=== PATIENT | male | born 1990 | race Caucasian/White ===

== ENCOUNTER 2024-06-19 03:08 | Emergency (ER) | payer OTHER, SELFPAY ==
[2024-06-19 03:10] VITALS: BP 138/98
[2024-06-19 03:28] LABS: Glucose - Point of Care 390 mg/dl (70-99)
[2024-06-19 03:31] VITALS: BMI 24.0
[2024-06-19 03:35] VITALS: BP 127/89
[2024-06-19 04:00] VITALS: BP 122/92
--- NOTE | 2024-06-19 04:42 | ED.GENMED ---
History of Present Illness
General
Chief Complaint: Prescription Refill
Source: patient
Exam Limitations: none
Time Seen by Provider: 06/19/24 04:31
Nursing documentation reviewed up to this point in time: agreed with
History of Present Illness
History of Present Illness:
This is a 34-year-old gentleman with longstanding history of insulin-dependent diabetes. Previous hospitalization January 2023 for acute DKA. He does admit that his blood sugars generally run mildly high but overall has been stable with no recurrent
episodes of DKA.
He has been compliant with twice daily Levemir 20 mg but realized this evening that he ran out of his Levemir and attempted to call his physician, left a message but thus far has not received a return phone call.
He presents requesting prescription refill for his Levemir as well as requesting his evening dose of Levemir which he inadvertently missed tonight.
Overall feeling well, denies increased thirst nor increased urination, denies dizziness nor lightheadedness, no chest pain or cough or shortness of breath, no fever nor chills.
He denies needing any other prescription refills other than the Levemir.
Past History
Past History
ED Past Medical History: GERD, HTN, Hypercholesterolemia, IDDM, Psychiatric (Anxiety, Depression) and Other (Ulcers, Pelvic fractures)
ED Past Surgical History: None
Social History
Tobacco: Smoker
Alcohol: None
Drug: Marijuana
Personal: Single
Living: with family (Girlfriends family)
Employment: Not employed
Family History
Family History: Other (Noncontributory)
Phy Exam
Physical Exam
Physical Exam:
GENERAL: 34-year-old gentleman appears his stated age, awake and alert, pleasant, appears in no acute distress.
EYE: pupils equal and reactive. anicteric
NECK: Supple, nontender, no meningismus, no significant adenopathy.
ENT: oral mucosa is moist. No rhinorrhea.
CARDIAC: Regular rate and rhythm. no murmur.
LUNGS: Clear breath sounds bilaterally, no acute respiratory distress, no wheezes/rales/rhonchi
ABDOMEN: Soft, nondistended, without focal tenderness
NEUROLOGICAL: Alert and oriented x3, no focal neuro deficits. Gait is wilhelm and steady.
SKIN: Warm and dry, moderately pale in color, skin intact. No rash.
MUSCULOSKELETAL: No C/C/E. peripheral pulses are full and equal b/l. No palpable tenderness.
PSYCH: Normal and appropriate interaction.
Course
Orders/Labs/Results
Orders:
Orders
06/19/24 04:39
Insulin Glargine Lantus [Lantus] 20 units Subcutaneous Insulin Syringe [Syringe-Insulin] 0 unit SC NOW
Abnormal Lab Results
06/19/24
03:26
POC Glucose 390 H mg/dl
(70-99)
Vital Signs
Initial and Last Documented VS:
Initial Vital Signs
Temp Pulse Resp BP Pulse Ox
97.3 F 114 16 138/98 100
06/19/24 03:10 06/19/24 03:10 06/19/24 03:10 06/19/24 03:10 06/19/24 03:10
Last Documented Vital Signs
Temp Pulse Resp BP Pulse Ox
97.3 F 94 16 127/89 98
06/19/24 03:10 06/19/24 03:35 06/19/24 03:10 06/19/24 03:35 06/19/24 03:35
MDM/Problems Addressed
Differential Diagnosis Includes:
Patient with longstanding history of insulin-dependent diabetes has inadvertently run out of his long-acting/Levemir insulin which she is maintained on 20 units twice daily.
Accu-Chek elevated at 390.
Nothing in history nor exam to suggest DKA the patient states his blood sugars generally run somewhat elevated.
Will give his usual 20 units of long-acting insulin now. We have Lantus on hand and will refill prescription for Levemir FlexPen 20 units twice daily.
He denies needing any other medication refills.
Recommend prompt follow-up with PCP for recheck.
Chronic conditions affecting care: DM
*Pulse Oximetry
Patient hypoxic: no
*Critical Care Note
Total Time (30-74mins, 75-104mins- exclusive of procedures): Not Applicable
ED Attending Note
-
Portions of this chart may have been created with voice recognition software.� Occasional wrong word or��sound alike� substitutions may have occurred due to the inherent limitations of voice recognition software.
Discharge Plan
Departure
Patient Disposition: Home (Routine Discharge)
Date of Disposition: 06/19/24
Time of Disposition: 04:42
Patient with high blood pressure during this ER visit?: No
Condition: Good
Discharge Problem:
Visit for insulin refill, Diabetes type I
Instructions: Type 1 diabetes
Prescriptions:
New
insulin detemir U-100 100 unit/mL (3 mL) insulin pen
20 unit SC BID Qty: 15 3RF
No Action
lisinopril 20 MG tablet
20 mg PO DAILY
Levemir FlexPen 100 unit/mL (3 mL) insulin pen
20 unit SC BID Qty: 15 1RF
carvedilol 25 mg tablet
25 mg PO BID
insulin lispro
8 units SC TIDWMEAL
Patient Comments:
takes roughly 8 units with meals
sertraline [Zoloft] 100 mg Tablet
100 mg PO DAILY
simvastatin [Zocor] 40 mg Tablet
40 mg PO HS
metoclopramide HCl [Reglan] 10 mg Tablet
10 mg PO DAILY AT 0700
duloxetine 20 mg Capsule,Delayed Release(Dr/Ec)
20 mg PO DAILY
omeprazole
20 mg PO DAILY AT 0700
Referrals:
Valdez Cruz MD [Family Provider] - Call in 1-3 days for appt
Interventions
Interventions:
*Risk Screen - Suicide Last Done: 06/19/24 03:10
*General Assessment Last Done: 06/19/24 03:10
*Neglect/Abuse Screening Last Done: 06/19/24 03:10
ED- Fall Risk Assessment Last Done: 06/19/24 03:31
*ED COVID-19 Vaccine History Last Done: 06/19/24 03:31
Discharge Date and Time
Print Language: SLOVAK
[2024-06-19] MEDS: LANTUS 0.2 UNITS SC (05:17)
== END 2024-06-19 05:33 | disposition home or self-care (01) ==
LOC: EMR 03:08
PROVIDERS: EMERGENCY PHYSICIAN Emergency Medicine; FAMILY PHYSICIAN Internal Medicine
DX: Z76.0 Encounter for issue of repeat prescription (principal); E10.9 Type 1 diabetes mellitus without complications; E78.00 Pure hypercholesterolemia, unspecified; F41.8 Other specified anxiety disorders; I10 Essential (primary) hypertension; K21.9 Gastro-esophageal reflux disease without esophagitis; F17.200 Nicotine dependence, unspecified, uncomplicated; Z79.4 Long term (current) use of insulin
CPT/HCPCS: 99282; 96372; 82962

== ENCOUNTER 2025-01-19 21:20 | Emergency (ER) | payer OTHER, SELFPAY ==
[2025-01-19 21:22] VITALS: BP 138/101
[2025-01-19 21:26] LABS: Glucose - Point of Care 288 mg/dl (70-99)
[2025-01-19 21:46] LABS: % Basophils 2.1 % (0-2); % Eosinophils 9.5 % (0-6); % Immature Granulocytes 0.2 % (0-0.5); % Neutrophils 42.2 % (42.2-75.2); Absolute Basophils 0.1 10^3/uL (0-0.2); Absolute Eosinophils 0.5 10^3/uL (0-0.7); Absolute Lymphocytes 1.8 10^3/uL (1.2-3.4); Absolute Monocytes 0.4 10^3/uL (0.1-0.6); Hematocrit 39.6 % (39.0-52.0); Mean Corp Hgb Conc. 35.4 g/dL (33.0-37.0); Mean Platelet Volume 10.6 fL (7.4-10.4); Nucleated Red Blood Cells % 0 % (-); Platelet Count 231 10^3/uL (130-400); Red Blood Cell Count 4.83 10^6/uL (4.70-6.10); Red Cell Dist. Width 12.1 % (11.5-14.5); White Blood Cell Count 4.7 10^3/uL (4.8-10.8)
[2025-01-19 21:47] LABS: Urine Albumin 2+ (Neg - Trace); Urine Bilirubin Negative (Negative); Urine Character Clear (Clear); Urine Color Yellow; Urine Glucose 4+ (Negative); Urine Ketone Negative (Negative); Urine Leukocyte Negative (Negative); Urine Nitrite Negative (Negative); Urine Occult Blood 2+ (Negative); Urine Urobilinogen Negative (Neg - 1+); Urine pH 6.5 (5.0-9.0)
[2025-01-19 21:51] LABS: Urine Squamous Cell 0-2 /LPF (Few)
[2025-01-19 21:52] LABS: Urine Bacteria Few (Negative); Urine White Cell 0-2 /HPF (0-5)
[2025-01-19 22:04] LABS: ALT (SGPT) 11 U/L (0-50); AST (SGOT) 16 U/L (17-59); Albumin 4.5 g/dl (3.5-5.0); Alkaline Phosphatase 77 U/L (38-126); Blood Urea Nitrogen 7 mg/dl (9-20); Carbon Dioxide 26 mmol/L (22-30); Chloride 102 mmol/L (98-107); Glucose 308 mg/dl (70-99); Potassium 4.3 mmol/L (3.5-5.1); Sodium 136 mmol/L (135-145); Total Bilirubin 1.2 mg/dl (0.2-1.3); Total Protein 7.3 g/dl (6.3-8.2); eGFR > 60.00
== END 2025-01-19 23:30 ==
LOC: EMR 21:20
PROVIDERS: Student in an Organized Health Care Education/Training Program; FAMILY PHYSICIAN Internal Medicine
DX: F41.0 Panic disorder [episodic paroxysmal anxiety] (principal)
CPT/HCPCS: 80053; 81003; 81015; 82962; 85025